=== PATIENT | female | born 1970 | race American Indian/Alaskan Native ===

== ENCOUNTER 2021-08-16 10:45 | Emergency (ER) | payer MEDICARE, OTHER ==
[2021-08-16] MEDS ORDERED: Ketorolac 30 MG/ML SDV IM ONE (10:59)
[2021-08-16 11:00] VITALS: BP 158/97; PULSE 80
== END 2021-08-16 11:22 | disposition home or self-care (01) ==
LOC: DL.ED 10:45
DX: M62.830 Muscle spasm of back (principal); Z72.0 Tobacco use
CPT/HCPCS: 96372; 99283; 99284; J1885